=== PATIENT | male | born 1955 | race Two or more races ===

== ENCOUNTER 2022-11-22 16:08 | Emergency (ER) | payer OTHER ==
[~2022-11-22] VITALS: Ht 175.3 cm; Wt 95.9 kg
[~2022-11-22 16:08] MED LIST: CARB-102 PO; CHOL20004 PO; PRAM15 PO; RASA1TAB PO; ROSU5TAB PO; TAMS-13 PO
[2022-11-22] MEDS ORDERED: AMAN-24 PO (16:20)
[2022-11-22] MEDS ORDERED: DOCU-385 PO (16:20)
[2022-11-22] MEDS ORDERED: CYAN500T56 PO (16:20)
[2022-11-22] MEDS ORDERED: LORA10TA7 PO (16:20)
[2022-11-22] MEDS ORDERED: ONDA-104 PO (16:20)
[2022-11-22 18:50] VITALS: BP 132/72
== END 2022-11-22 19:22 | disposition home or self-care (01) ==
LOC: EMS 16:12
DX: R60.0 Localized edema (principal); G20 Parkinson's disease; Z98.890 Other specified postprocedural states
CPT/HCPCS: 85379; 93971; 99284

== ENCOUNTER 2025-02-03 20:09 | Emergency (ER) | payer OTHER ==
[~2025-02-03] VITALS: Ht 167.6 cm; Wt 81.8 kg
[~2025-02-03 20:09] MED LIST changes: +AMAN-24 PO; -CARB-102 PO; +CYAN500T56 PO; +DOCU-385 PO; +LORA10TA7 PO; +ONDA-104 PO; +PRAM1.5T12 PO; -PRAM15 PO; -RASA1TAB PO; -ROSU5TAB PO; -TAMS-13 PO
[2025-02-03 20:25] VITALS: BP 128/73; PULSE 80; RESP 16; TEMP 98.1; O2SAT 100
[2025-02-03 20:32] LABS: COVID AG,FIA SOURCE NASAL SWAB
[2025-02-03 20:40] LABS: PLATELET COUNT (AUTO) 207 K/uL (150-450); RED BLOOD CELL COUNT(AUTO) 4.49 MIL/uL (4.50-5.90); RED CELL DISTRIBUTION WIDTH 13.7 % (11.5-14.5); WHITE BLOOD COUNT (AUTO) 12.3 K/uL (4.5-11.0)
[2025-02-03 20:45] LABS: CALCIUM, TOTAL 8.3 mg/dL (8.8-10.5); CREATININE 0.82 mg/dL (0.60-1.30); GLOMERULAR FILTR. RATE CALC > 60 mL/min (>60); GLUCOSE,RANDOM 98 mg/dL (70-110); SODIUM SERUM 143 mmol/L (136-145); UREA NITROGEN, BLOOD 13 mg/dL (7-18)
[2025-02-03 20:45] LABS: SARS-COV2 (COVID) ANTIGEN,FIA Negative (Negative)
[2025-02-03 20:56] LABS: ASPARTATE AMINOTRANSFERASE 30.0 U/L (15-37); TOTAL PROTEIN, SERUM 6.9 g/dL (6.4-8.2)
[2025-02-03 21:02] LABS: INFLUENZA TYPE A NEGATIVE FOR TYPE A (NEGATIVE); INFLUENZA TYPE B NEGATIVE FOR TYPE B (NEGATIVE)
[2025-02-03] MEDS: ACETAMINOPHEN 500 MG TABLET PO ONE (21:34)
[2025-02-03] MEDS: SODIUM CHLORIDE 0.9% 1,000 ML IV ONE (21:34)
[2025-02-03 21:42] LABS: TROPONIN I-HIGH SENSITIVITY 8 ng/L (<76)
[2025-02-03] MEDS: LOPERAMIDE HCL 2 MG CAPSULE PO ONE (22:42)
[2025-02-03] MEDS: SIMETHICONE 80 MG CHEWABLE TABLET CHEW ONE (22:43)
== END 2025-02-04 00:18 | disposition home or self-care (01) ==
LOC: EMS 20:09
DX: A08.4 Viral intestinal infection, unspecified (principal); R10.33 Periumbilical pain; R11.2 Nausea with vomiting, unspecified; R06.02 Shortness of breath; Z20.822 Contact with and (suspected) exposure to COVID-19
CPT/HCPCS: 99284; 71045; 87426; 80048; 80076; 83690; 83880; 84484; 85025; 87804; 36415; J7030